=== PATIENT | male | born 1975 | race Caucasian/White ===

== ENCOUNTER 2023-11-26 19:16 | Emergency (ER) | payer OTHER ==
[2023-11-26 19:24] VITALS: BP 158/100; PULSE 71; RESP 18; TEMP 97.8; BMI 25.0
[2023-11-26] MEDS ORDERED: ACETAMINOPHEN 325 MG TABLET (FP) ONE (19:43)
[2023-11-26] MEDS ORDERED: LIDOCAINE 4% PATCH TP ONE (19:43)
[2023-11-26] MEDS ORDERED: KETOROLAC TROMETHAMINE 30 MG/1 ML VIAL ONE (19:43)
[2023-11-26] MEDS: KETOROLAC TROMETHAMINE 30 MG/1 ML VIAL IM ONE (20:09)
[2023-11-26] MEDS: LIDOCAINE 5% TOPICAL PATCH TP ONE (20:10)
[2023-11-26] MEDS: ACETAMINOPHEN 325 MG TABLET (FP) PO ONE (20:10)
[2023-11-26] MEDS ORDERED: LIDOCAINE PATCH REMOVAL MC SCH (22:00)
== END 2023-11-26 21:15 | disposition home or self-care (01) ==
LOC: JERFT 19:16
DX: M25.511 Pain in right shoulder (principal)
CPT/HCPCS: 73000-TC-RT-FY; 73030-TC-RT-FY; 73060-TC-RT-FY; 99284-25